=== PATIENT | female | born 1930 | race Caucasian/White ===

== ENCOUNTER 2017-12-15 20:12 | Inpatient (IN) ==
[2017-12-15] MEDS ORDERED: methylPREDNISolone SOD SUC 125 MG/2 ML VIAL IV STA (20:53)
[2017-12-15] MEDS ORDERED: CEFEPIME 2,000 MG in SODIUM CHLORIDE 0.9% 100 ML IV STA (20:54)
[2017-12-15] MEDS ORDERED: ALBUTEROL/IPRATROPIUM 3 ML NEB RESP TX STA (20:54)
[2017-12-15 20:57] LABS: Basophils % 0.1 % (0.0-0.8); Eosinophils % 0.4 % (0.00-10.9); Hematocrit 32.3 VOL% (35.7-47.0); Hemoglobin 10.1 GM/DL (12.0-16.0); Immature Granulocytes % 0.9 %; Immature Granulocytes Absolute 0.07 #; Lymphocytes # 0.6 10*3/uL (1.4-4.0); Lymphocytes % 8.1 % (21.3-54.2); Mean Corpuscular HGB Conc 31.3 GM/DL (32-36); Mean Corpuscular Hemoglobin 27 PG (27-34); Mean Corpuscular Volume 87.1 FL (87-102); Monocytes # 0.4 10*3/uL (0.11-0.8); Monocytes % 4.9 % (1.7-12.7); Neutrophils # 6.6 10*3/uL (1.4-7.4); Neutrophils % 85.6 % (38.7-73.9); Platelet Count 213 T/CUMM (130-400); Red Blood Count 3.71 MC/CUMM (3.8-5.5); Red Cell Distribution Width 15.9 % (9.3-17.3); White Blood Count 7.8 T/CUMM (4-12)
[2017-12-15 20:58] LABS: VBG HCO3 21.9 MEQ/L (24-28); VBG Oxygen Saturation 97.9 %; VBG PCO2 38.4 MMHG (41-51); VBG PH 7.366
[2017-12-15 21:24] LABS: Bilirubin,Total 0.4 MG/DL (0.2-1.0); Calcium 7.8 MG/DL (8.5-10.1); Potassium 3.7 MMOL/L (3.5-5.1); Total Protein 6.7 G/DL (6.4-8.3)
[2017-12-15] MEDS ORDERED: ONDANSETRON 4 MG/2 ML VIAL IV PRN (22:46)
[2017-12-15] MEDS ORDERED: ACETAMINOPHEN 325 MG TABLET PO PRN (22:46)
[2017-12-15 23:16] LABS: Apearance,Urine CLEAR (Clear); Bacteria,Urine Occasional /HPF (Few); Bilirubin,Urine Negative (Negative); Blood, Urine Moderate mg/dL (Negative); Glucose,Urine (UA) Negative (Negative); Ketones,Urine Negative (Negative); Nitrite,Urine Negative (Negative); Protein,Urine Negative; RBC,Urine 2 /HPF (0-4); Squamous Epithelial Cell,Urine Occasional /HPF (0-10); Urine Color Yellow (Yellow); Urine Specific Gravity 1.008 (1.001-1.035); Urine Urobilinogen < 2.0 EU/DL (0.2-1.0); WBC,Urine <1 /HPF (0-6)
[2017-12-15] MEDS ORDERED: metOLazone 2.5 MG TABLET PO PRN (23:51)
[2017-12-16 01:52] LABS: Basophils % 0.1 % (0.0-0.8); Hematocrit 34.5 VOL% (35.7-47.0); Hemoglobin 10.7 GM/DL (12.0-16.0); Immature Granulocytes % 1.2 %; Immature Granulocytes Absolute 0.08 #; Lymphocytes # 0.3 10*3/uL (1.4-4.0); Lymphocytes % 4.5 % (21.3-54.2); Mean Corpuscular Hemoglobin 27 PG (27-34); Mean Corpuscular Volume 86.7 FL (87-102); Mean Platelet Volume 9.8 FL (9.6-12.0); Monocytes # 0.1 10*3/uL (0.11-0.8); Monocytes % 1.6 % (1.7-12.7); Neutrophils # 6.2 10*3/uL (1.4-7.4); Neutrophils % 92.6 % (38.7-73.9); Platelet Count 221 T/CUMM (130-400); Red Blood Count 3.98 MC/CUMM (3.8-5.5); Red Cell Distribution Width 15.9 % (9.3-17.3); White Blood Count 6.7 T/CUMM (4-12)
[2017-12-16 02:09] LABS: Calcium 8.2 MG/DL (8.5-10.1); Osmolality,Calculated 279.7 MOS/KG (273-304); Potassium 3.8 MMOL/L (3.5-5.1)
[2017-12-16 02:14] LABS: Band Neutrophils 4 % (0-10); Lymphocytes 5 % (20-55); Platelet Estimate Normal; Segmented Neutrophils 83 % (50-85); Total Cells Counted 100
[2017-12-16] MEDS: SODIUM CHLORIDE 0.45% 1,000 ML IV SCH ×2 (02:55→20:29)
[2017-12-16] MEDS: methylPREDNISolone SOD SUC 40 MG/1 ML VIAL IV SCH ×3 (05:28→22:17)
[2017-12-16] MEDS: ALBUTEROL/IPRATROPIUM 3 ML NEB RESP TX PRN (05:28)
[2017-12-16] MEDS: IPRATROPIUM 500 MCG/2.5 ML NEB RESP TX SCH ×4 (08:42→19:46)
[2017-12-16] MEDS: PANTOPRAZOLE 40 MG TABLET PO SCH (10:41)
[2017-12-16] MEDS: amLODIPine 2.5 MG TABLET PO SCH (10:41)
[2017-12-16] MEDS: BUDESONIDE/FORMOTEROL 160-4.5 INHALER 6 GM INH SCH ×2 (10:41→21:22)
[2017-12-16] MEDS: ISOSORBIDE MONONITRATE 60 MG TABLET PO SCH (10:41)
[2017-12-16] MEDS: ASPIRIN 325 MG TABLET PO SCH (10:41)
[2017-12-16] MEDS: FUROSEMIDE 40 MG TABLET PO SCH (10:42)
[2017-12-16] MEDS: ENOXAPARIN 30 MG/0.3 ML SYRINGE SUBCUT SCH (10:42)
[2017-12-16] MEDS: POTASSIUM CHLORIDE 10 MEQ TABLET PO SCH ×2 (10:42→21:19)
[2017-12-16] MEDS: DORNASE ALFA 2.5 MG/2.5 ML VIAL RESP TX SCH ×2 (12:58→19:46)
[2017-12-16] MEDS: LISINOPRIL 10 MG TABLET PO SCH (21:19)
[2017-12-16] MEDS: ATORVASTATIN 40 MG TABLET PO SCH (21:21)
[2017-12-16] MEDS: MONTELUKAST 10 MG TABLET PO SCH (21:21)
[2017-12-16] MEDS: LEVOFLOXACIN INJ 750 MG in PREMIX 1 EACH IV SCH ×2 (22:20)
[2017-12-17] MEDS: methylPREDNISolone SOD SUC 40 MG/1 ML VIAL IV SCH ×3 (05:01→21:54)
[2017-12-17 06:31] LABS: Basophils % 0.2 % (0.0-0.8); Hematocrit 33.8 VOL% (35.7-47.0); Hemoglobin 10.6 GM/DL (12.0-16.0); Immature Granulocytes % 4.1 %; Immature Granulocytes Absolute 0.24 #; Lymphocytes # 0.7 10*3/uL (1.4-4.0); Lymphocytes % 11.3 % (21.3-54.2); Mean Corpuscular HGB Conc 31.4 GM/DL (32-36); Mean Corpuscular Hemoglobin 27 PG (27-34); Mean Platelet Volume 10.1 FL (9.6-12.0); Monocytes # 0.4 10*3/uL (0.11-0.8); Monocytes % 6.2 % (1.7-12.7); Neutrophils # 4.6 10*3/uL (1.4-7.4); Neutrophils % 78.2 % (38.7-73.9); Platelet Count 246 T/CUMM (130-400); Red Blood Count 3.93 MC/CUMM (3.8-5.5); Red Cell Distribution Width 15.7 % (9.3-17.3); White Blood Count 5.9 T/CUMM (4-12)
[2017-12-17 06:49] LABS: Calcium 8.5 MG/DL (8.5-10.1); Osmolality,Calculated 285.3 MOS/KG (273-304)
[2017-12-17 06:53] LABS: Hypochromasia Slight; Ovalocytes Slight; Platelet Estimate Adequate
[2017-12-17] MEDS: IPRATROPIUM 500 MCG/2.5 ML NEB RESP TX SCH ×4 (07:22→19:52)
[2017-12-17] MEDS: DORNASE ALFA 2.5 MG/2.5 ML VIAL RESP TX SCH ×2 (07:22→19:52)
[2017-12-17] MEDS ORDERED: GLUCAGON 1 MG VIAL IM PRN (07:55)
[2017-12-17] MEDS ORDERED: DEXTROSE 50% 25 GM/50 ML VIAL IV PRN (07:55)
[2017-12-17 08:09] LABS: % Iron Saturation 10.5 % (18-50)
[2017-12-17 08:17] LABS: Ferritin 42.6 ng/ml (8-252)
[2017-12-17] MEDS: ISOSORBIDE MONONITRATE 60 MG TABLET PO SCH (09:19)
[2017-12-17] MEDS: amLODIPine 2.5 MG TABLET PO SCH (09:19)
[2017-12-17] MEDS: ASPIRIN 325 MG TABLET PO SCH (09:19)
[2017-12-17] MEDS: FUROSEMIDE 40 MG TABLET PO SCH (09:20)
[2017-12-17] MEDS: PANTOPRAZOLE 40 MG TABLET PO SCH (09:20)
[2017-12-17] MEDS: POTASSIUM CHLORIDE 10 MEQ TABLET PO SCH ×2 (09:20→21:54)
[2017-12-17] MEDS: ENOXAPARIN 30 MG/0.3 ML SYRINGE SUBCUT SCH (09:20)
[2017-12-17] MEDS: BUDESONIDE/FORMOTEROL 160-4.5 INHALER 6 GM INH SCH ×2 (09:20→21:55)
[2017-12-17] MEDS: INSULIN LISPRO 100 UNIT/ML SUBCUT SCH ×3 (13:00→21:55)
[2017-12-17] MEDS: FERRIC GLUCONATE COMPLEX 125 MG in SODIUM CHLORIDE 0.9% 100 ML IV SCH (13:01)
[2017-12-17] MEDS: SODIUM CHLORIDE 0.45% 1,000 ML IV SCH (15:10)
[2017-12-17] MEDS: MONTELUKAST 10 MG TABLET PO SCH (21:54)
[2017-12-17] MEDS: ATORVASTATIN 40 MG TABLET PO SCH (21:54)
[2017-12-17] MEDS: LISINOPRIL 10 MG TABLET PO SCH (21:55)
[2017-12-17] MEDS: LEVOFLOXACIN INJ 750 MG in PREMIX 1 EACH IV SCH (22:00)
[2017-12-18] MEDS: methylPREDNISolone SOD SUC 40 MG/1 ML VIAL IV SCH ×3 (05:54→21:58)
[2017-12-18] MEDS: IPRATROPIUM 500 MCG/2.5 ML NEB RESP TX SCH ×5 (07:42→19:51)
[2017-12-18] MEDS: DORNASE ALFA 2.5 MG/2.5 ML VIAL RESP TX SCH ×2 (07:43→19:51)
[2017-12-18] MEDS: INSULIN LISPRO 100 UNIT/ML SUBCUT SCH ×4 (09:17→21:59)
[2017-12-18] MEDS: ASPIRIN 325 MG TABLET PO SCH (09:18)
[2017-12-18] MEDS: FUROSEMIDE 40 MG TABLET PO SCH (09:18)
[2017-12-18] MEDS: FERRIC GLUCONATE COMPLEX 125 MG in SODIUM CHLORIDE 0.9% 100 ML IV SCH (09:18)
[2017-12-18] MEDS: ISOSORBIDE MONONITRATE 60 MG TABLET PO SCH (09:18)
[2017-12-18] MEDS: POTASSIUM CHLORIDE 10 MEQ TABLET PO SCH ×2 (09:18→21:58)
[2017-12-18] MEDS: BUDESONIDE/FORMOTEROL 160-4.5 INHALER 6 GM INH SCH ×2 (09:19→21:59)
[2017-12-18] MEDS: PANTOPRAZOLE 40 MG TABLET PO SCH (09:19)
[2017-12-18] MEDS: amLODIPine 2.5 MG TABLET PO SCH (09:19)
[2017-12-18] MEDS: ENOXAPARIN 30 MG/0.3 ML SYRINGE SUBCUT SCH (13:31)
[2017-12-18] MEDS: DOCUSATE SODIUM 100 MG CAPSULE PO SCH ×2 (13:31→21:58)
[2017-12-18] MEDS: SODIUM CHLORIDE 0.45% 1,000 ML IV SCH (16:54)
[2017-12-18] MEDS: ATORVASTATIN 40 MG TABLET PO SCH (21:57)
[2017-12-18] MEDS: MONTELUKAST 10 MG TABLET PO SCH (21:57)
[2017-12-18] MEDS: LISINOPRIL 10 MG TABLET PO SCH (21:58)
[2017-12-18] MEDS: LEVOFLOXACIN INJ 750 MG in PREMIX 1 EACH IV SCH (22:01)
[2017-12-19] MEDS: methylPREDNISolone SOD SUC 40 MG/1 ML VIAL IV SCH ×3 (05:57→21:35)
[2017-12-19 06:48] LABS: Basophils % 0.3 % (0.0-0.8); Hemoglobin 11.5 GM/DL (12.0-16.0); Immature Granulocytes % 11.4 %; Immature Granulocytes Absolute 1.09 #; Lymphocytes # 0.9 10*3/uL (1.4-4.0); Lymphocytes % 9.3 % (21.3-54.2); Mean Corpuscular HGB Conc 32.9 GM/DL (32-36); Mean Corpuscular Hemoglobin 27 PG (27-34); Mean Corpuscular Volume 82.9 FL (87-102); Monocytes # 0.6 10*3/uL (0.11-0.8); Monocytes % 5.8 % (1.7-12.7); NRBC # 0.02 10*3/uL; Neutrophils % 73.2 % (38.7-73.9); Platelet Count 301 T/CUMM (130-400); Red Blood Count 4.22 MC/CUMM (3.8-5.5); Red Cell Distribution Width 15.6 % (9.3-17.3); White Blood Count 9.6 T/CUMM (4-12)
[2017-12-19 07:10] LABS: Band Neutrophils 1 % (0-10); Hypochromasia 1+; Lymphocytes 6 % (20-55); Microcytosis 1+; Myelocytes 1 %; Ovalocytes Few; Segmented Neutrophils 85 % (50-85); Total Cells Counted 100
[2017-12-19 07:11] LABS: Acanthocytes Few; Platelet Estimate Normal
[2017-12-19 07:13] LABS: Albumin 2.9 G/DL (3.4-5.0); Bilirubin,Total 0.7 MG/DL (0.2-1.0); Calcium 8.9 MG/DL (8.5-10.1); Osmolality,Calculated 286.4 MOS/KG (273-304); Potassium 4.3 MMOL/L (3.5-5.1); Total Protein 7.1 G/DL (6.4-8.3)
[2017-12-19] MEDS: IPRATROPIUM 500 MCG/2.5 ML NEB RESP TX SCH ×4 (07:44→19:45)
[2017-12-19] MEDS: DORNASE ALFA 2.5 MG/2.5 ML VIAL RESP TX SCH ×2 (07:45→19:45)
[2017-12-19] MEDS: ENOXAPARIN 30 MG/0.3 ML SYRINGE SUBCUT SCH (09:38)
[2017-12-19] MEDS: ASPIRIN 325 MG TABLET PO SCH (09:39)
[2017-12-19] MEDS: POTASSIUM CHLORIDE 10 MEQ TABLET PO SCH ×2 (09:40→21:35)
[2017-12-19] MEDS: FERRIC GLUCONATE COMPLEX 125 MG in SODIUM CHLORIDE 0.9% 100 ML IV SCH (09:40)
[2017-12-19] MEDS: ISOSORBIDE MONONITRATE 60 MG TABLET PO SCH (09:40)
[2017-12-19] MEDS: DOCUSATE SODIUM 100 MG CAPSULE PO SCH ×2 (09:40→21:35)
[2017-12-19] MEDS: PANTOPRAZOLE 40 MG TABLET PO SCH (09:40)
[2017-12-19] MEDS: FUROSEMIDE 40 MG TABLET PO SCH (09:40)
[2017-12-19] MEDS: INSULIN LISPRO 100 UNIT/ML SUBCUT SCH ×3 (09:41→16:40)
[2017-12-19] MEDS: SODIUM CHLORIDE 0.45% 1,000 ML IV SCH (09:41)
[2017-12-19] MEDS: BUDESONIDE/FORMOTEROL 160-4.5 INHALER 6 GM INH SCH ×2 (09:50→21:37)
[2017-12-19] MEDS: amLODIPine 2.5 MG TABLET PO SCH (09:50)
[2017-12-19] MEDS ORDERED: SODIUM PHOSPHATE ENEMA 133 ML BOTTLE RECTAL ONE (10:40)
[2017-12-19] MEDS ORDERED: SODIUM PHOSPHATE ENEMA 133 ML BOTTLE RECTAL PRN (10:40)
[2017-12-19] MEDS: LISINOPRIL 10 MG TABLET PO SCH (21:34)
[2017-12-19] MEDS: MONTELUKAST 10 MG TABLET PO SCH (21:35)
[2017-12-19] MEDS: ATORVASTATIN 40 MG TABLET PO SCH (21:35)
[2017-12-19] MEDS: LEVOFLOXACIN INJ 750 MG in PREMIX 1 EACH IV SCH (22:14)
[2017-12-20] MEDS: INSULIN LISPRO 100 UNIT/ML SUBCUT SCH ×3 (03:31→14:27)
[2017-12-20] MEDS: SODIUM CHLORIDE 0.45% 1,000 ML IV SCH (03:32)
[2017-12-20 05:27] LABS: Basophils # 0.1 10*3/uL (0.0-0.2); Basophils % 0.8 % (0.0-0.8); Hematocrit 33.6 VOL% (35.7-47.0); Hemoglobin 10.7 GM/DL (12.0-16.0); Immature Granulocytes % 16.4 %; Immature Granulocytes Absolute 1.89 #; Lymphocytes # 0.9 10*3/uL (1.4-4.0); Lymphocytes % 7.8 % (21.3-54.2); Mean Corpuscular HGB Conc 31.8 GM/DL (32-36); Mean Corpuscular Hemoglobin 27 PG (27-34); Mean Corpuscular Volume 85.3 FL (87-102); Mean Platelet Volume 9.7 FL (9.6-12.0); Monocytes # 0.6 10*3/uL (0.11-0.8); Monocytes % 4.9 % (1.7-12.7); NRBC # 0.06 10*3/uL; Neutrophils # 8.1 10*3/uL (1.4-7.4); Neutrophils % 70.1 % (38.7-73.9); Platelet Count 274 T/CUMM (130-400); Red Blood Count 3.94 MC/CUMM (3.8-5.5); Red Cell Distribution Width 15.4 % (9.3-17.3); White Blood Count 11.5 T/CUMM (4-12)
[2017-12-20 05:50] LABS: Calcium 8.2 MG/DL (8.5-10.1); Osmolality,Calculated 285.5 MOS/KG (273-304); Potassium 4.2 MMOL/L (3.5-5.1)
[2017-12-20 05:56] LABS: Anisocytosis 1+; Band Neutrophils 9 % (0-10); Lymphocytes 8 % (20-55); Segmented Neutrophils 77 % (50-85); Total Cells Counted 100
[2017-12-20 05:57] LABS: Acanthocytes 1+; Poikilocytosis 2+; Polychromasia Slight
[2017-12-20] MEDS: methylPREDNISolone SOD SUC 40 MG/1 ML VIAL IV SCH ×2 (06:06→14:27)
[2017-12-20] MEDS: ALBUTEROL/IPRATROPIUM 3 ML NEB RESP TX PRN (07:03)
[2017-12-20] MEDS: DORNASE ALFA 2.5 MG/2.5 ML VIAL RESP TX SCH (07:03)
[2017-12-20] MEDS: IPRATROPIUM 500 MCG/2.5 ML NEB RESP TX SCH ×2 (07:04→10:47)
[2017-12-20] MEDS: FUROSEMIDE 40 MG TABLET PO SCH (09:40)
[2017-12-20] MEDS: ASPIRIN 325 MG TABLET PO SCH (09:40)
[2017-12-20] MEDS: amLODIPine 2.5 MG TABLET PO SCH (09:40)
[2017-12-20] MEDS: ISOSORBIDE MONONITRATE 60 MG TABLET PO SCH (09:40)
[2017-12-20] MEDS: DOCUSATE SODIUM 100 MG CAPSULE PO SCH (09:40)
[2017-12-20] MEDS: POTASSIUM CHLORIDE 10 MEQ TABLET PO SCH (09:40)
[2017-12-20] MEDS: ENOXAPARIN 30 MG/0.3 ML SYRINGE SUBCUT SCH (09:40)
[2017-12-20] MEDS: PANTOPRAZOLE 40 MG TABLET PO SCH (09:40)
[2017-12-20] MEDS: BUDESONIDE/FORMOTEROL 160-4.5 INHALER 6 GM INH SCH (09:41)
[2017-12-20] MEDS: FERRIC GLUCONATE COMPLEX 125 MG in SODIUM CHLORIDE 0.9% 100 ML IV SCH (09:41)
[2017-12-20 11:47] VITALS: BP 145/92
== END 2017-12-20 14:30 | disposition swing bed (61) | DRG 190 ==
LOC: N.ED 20:12 → N.EDINP 22:46 → N.3E 23:45 → N.5E 12-16 16:09
PROVIDERS: ADMIT Internal Medicine Infectious Disease; ATTEND Internal Medicine Infectious Disease

== ENCOUNTER 2018-05-26 09:34 | Inpatient (IN) ==
[2018-05-26] MEDS ORDERED: HYDROCORTISONE 25 MG SUPP RECTAL ONE (11:24)
[2018-05-26 11:37] LABS: Basophils % 0.5 % (0.0-0.8); Eosinophils # 0.3 10*3/uL (0.0-0.87); Eosinophils % 3.4 % (0.00-10.9); Hematocrit 38.4 VOL% (35.7-47.0); Hemoglobin 12.3 GM/DL (12.0-16.0); Immature Granulocytes Absolute 0.17 #; Mean Corpuscular Hemoglobin 30 PG (27-34); Mean Corpuscular Volume 92.1 FL (87-102); Mean Platelet Volume 9.8 FL (9.6-12.0); Monocytes # 0.7 10*3/uL (0.11-0.8); Monocytes % 7.6 % (1.7-12.7); Neutrophils # 6.4 10*3/uL (1.4-7.4); Neutrophils % 74.5 % (38.7-73.9); Platelet Count 238 T/CUMM (130-400); Red Blood Count 4.17 MC/CUMM (3.8-5.5); Red Cell Distribution Width 14.3 % (9.3-17.3); White Blood Count 8.5 T/CUMM (4-12)
[2018-05-26 11:47] LABS: PT Patient Result 10.9 SECS; Partial Thromboplastin Time 31.2 SECS (0-40)
[2018-05-26 11:59] LABS: Bilirubin,Total 0.8 MG/DL (0.2-1.0); Osmolality,Calculated 283.3 MOS/KG (273-304); Potassium 4.1 MMOL/L (3.5-5.1); Total Protein 6.7 G/DL (6.4-8.3)
[2018-05-26] MEDS ORDERED: ONDANSETRON 4 MG/2 ML VIAL IV PRN (12:17)
[2018-05-26] MEDS ORDERED: MAGNESIUM HYDROXIDE SUSP 30 ML UDCUP PO PRN (12:17)
[2018-05-26] MEDS ORDERED: metOLazone 2.5 MG TABLET PO PRN (14:55)
[2018-05-26 17:08] LABS: Apearance,Urine CLEAR (Clear); Bacteria,Urine Occasional /HPF (Few); Bilirubin,Urine Negative (Negative); Blood, Urine Negative (Negative); Glucose,Urine (UA) Negative (Negative); Ketones,Urine Negative (Negative); Nitrite,Urine Negative (Negative); Protein,Urine Negative; RBC,Urine <1 /HPF (0-4); Squamous Epithelial Cell,Urine Occasional /HPF (0-10); Urine Color Yellow (Yellow); Urine Specific Gravity 1.012 (1.001-1.035); WBC,Urine 1 /HPF (0-6)
[2018-05-26] MEDS: HYDROCORTISONE 25 MG SUPP RECTAL SCH ×2 (17:31→20:50)
[2018-05-26] MEDS: ATORVASTATIN 40 MG TABLET PO SCH (20:50)
[2018-05-26] MEDS: METOPROLOL TARTRATE 25 MG TABLET PO SCH (20:50)
[2018-05-26] MEDS ORDERED: CARVEDILOL 3.125 MG TABLET PO SCH (21:00)
[2018-05-27] MEDS ORDERED: ALBUTEROL 2.5 MG/3 ML NEB RESP TX PRN (02:23)
[2018-05-27] MEDS ORDERED: ALBUTEROL/IPRATROPIUM 3 ML NEB RESP TX ONE (02:30)
[2018-05-27] MEDS: ALBUTEROL 2.5 MG/3 ML NEB RESP TX SCH ×5 (03:40→19:16)
[2018-05-27 05:40] LABS: Basophils % 0.5 % (0.0-0.8); Eosinophils # 0.3 10*3/uL (0.0-0.87); Hematocrit 36.8 VOL% (35.7-47.0); Hemoglobin 11.8 GM/DL (12.0-16.0); Immature Granulocytes % 1.4 %; Immature Granulocytes Absolute 0.12 #; Lymphocytes # 1.2 10*3/uL (1.4-4.0); Lymphocytes % 13.9 % (21.3-54.2); Mean Corpuscular HGB Conc 32.1 GM/DL (32-36); Mean Corpuscular Hemoglobin 30 PG (27-34); Mean Corpuscular Volume 92.2 FL (87-102); Mean Platelet Volume 10.1 FL (9.6-12.0); Monocytes # 0.7 10*3/uL (0.11-0.8); Monocytes % 7.9 % (1.7-12.7); Neutrophils # 6.1 10*3/uL (1.4-7.4); Neutrophils % 73.3 % (38.7-73.9); Platelet Count 241 T/CUMM (130-400); Red Blood Count 3.99 MC/CUMM (3.8-5.5); Red Cell Distribution Width 14.3 % (9.3-17.3); White Blood Count 8.4 T/CUMM (4-12)
[2018-05-27 05:47] LABS: INR 1.1; PT Patient Result 11.1 SECS
[2018-05-27 06:08] LABS: Calcium 8.9 MG/DL (8.5-10.1); Osmolality,Calculated 282.1 MOS/KG (273-304); Potassium 3.9 MMOL/L (3.5-5.1)
[2018-05-27 06:12] LABS: Risk Ratio 3.16; VLDL CHOLESTEROL 18.2 MG/DL
[2018-05-27] MEDS ORDERED: PRAMOXINE 1% RECTAL FOAM 15 GM CAN TOP PRN (08:36)
[2018-05-27] MEDS ORDERED: LISINOPRIL 20 MG TABLET PO SCH (09:00)
[2018-05-27] MEDS: METOPROLOL TARTRATE 25 MG TABLET PO SCH ×2 (09:09→21:02)
[2018-05-27] MEDS: ISOSORBIDE MONONITRATE 60 MG TABLET PO SCH (09:09)
[2018-05-27] MEDS: ASPIRIN EC 81 MG TABLET PO SCH (09:09)
[2018-05-27] MEDS: HYDROCORTISONE 25 MG SUPP RECTAL SCH ×4 (09:10→21:02)
[2018-05-27] MEDS: FUROSEMIDE 40 MG TABLET PO SCH (09:10)
[2018-05-27] MEDS: BUDESONIDE/FORMOTEROL 160-4.5 INHALER 6 GM INH SCH ×2 (09:11→21:02)
[2018-05-27] MEDS: ATORVASTATIN 40 MG TABLET PO SCH (21:02)
[2018-05-28] MEDS: ALBUTEROL 2.5 MG/3 ML NEB RESP TX SCH ×5 (00:13→14:00)
[2018-05-28 04:40] LABS: Basophils % 0.4 % (0.0-0.8); Eosinophils # 0.2 10*3/uL (0.0-0.87); Eosinophils % 1.6 % (0.00-10.9); Immature Granulocytes % 0.7 %; Immature Granulocytes Absolute 0.07 #; Lymphocytes # 1.5 10*3/uL (1.4-4.0); Lymphocytes % 14.8 % (21.3-54.2); Mean Corpuscular HGB Conc 32.4 GM/DL (32-36); Mean Corpuscular Hemoglobin 30 PG (27-34); Mean Corpuscular Volume 91.2 FL (87-102); Mean Platelet Volume 9.8 FL (9.6-12.0); Monocytes # 0.9 10*3/uL (0.11-0.8); Monocytes % 9.3 % (1.7-12.7); Neutrophils # 7.2 10*3/uL (1.4-7.4); Neutrophils % 73.2 % (38.7-73.9); Platelet Count 221 T/CUMM (130-400); Red Blood Count 3.73 MC/CUMM (3.8-5.5); Red Cell Distribution Width 14.4 % (9.3-17.3); White Blood Count 9.8 T/CUMM (4-12)
[2018-05-28 04:57] LABS: Calcium 8.6 MG/DL (8.5-10.1); Osmolality,Calculated 275.7 MOS/KG (273-304); Potassium 3.4 MMOL/L (3.5-5.1)
[2018-05-28 05:00] LABS: INR 1.1; PT Patient Result 11.3 SECS
[2018-05-28] MEDS: FUROSEMIDE 40 MG TABLET PO SCH (09:05)
[2018-05-28] MEDS: ASPIRIN EC 81 MG TABLET PO SCH (09:05)
[2018-05-28] MEDS: METOPROLOL TARTRATE 25 MG TABLET PO SCH (09:05)
[2018-05-28] MEDS: ISOSORBIDE MONONITRATE 60 MG TABLET PO SCH (09:05)
[2018-05-28] MEDS: BUDESONIDE/FORMOTEROL 160-4.5 INHALER 6 GM INH SCH (09:06)
[2018-05-28] MEDS: HYDROCORTISONE 25 MG SUPP RECTAL SCH ×2 (10:32→14:48)
[2018-05-28] MEDS ORDERED: POTASSIUM CHLORIDE 10 MEQ TABLET PO SCH (14:30)
[2018-05-28 16:24] VITALS: BP 100/53
== END 2018-05-28 17:27 | disposition home health service (06) | DRG 394 ==
LOC: N.5E 10:34
PROVIDERS: ADMIT Internal Medicine Pulmonary Disease; ATTEND Internal Medicine Pulmonary Disease